=== PATIENT | female | born 1955 ===

== ENCOUNTER 2017-11-14 11:07 | Outpatient (CLI) | payer OTHER | END 2017-11-14 13:00 | disposition home or self-care (01) | LOC: MAMO-SONO 11:07 → SONOGRAMA 11:07 → MAMO-SONO 13:00 | DX: Z12.31 Encounter for screening mammogram for malignant neoplasm of breast (principal); N60.11 Diffuse cystic mastopathy of right breast ==

== ENCOUNTER 2017-11-18 12:43 | Outpatient (CLI) | payer OTHER | END 2017-11-18 12:58 | disposition home or self-care (01) | LOC: MAMO-SONO 12:43 | DX: Z12.31 Encounter for screening mammogram for malignant neoplasm of breast (principal); N60.11 Diffuse cystic mastopathy of right breast ==

== ENCOUNTER 2018-11-23 14:10 | Outpatient (CLI) | payer OTHER | END 2018-11-23 14:18 | disposition home or self-care (01) | LOC: MAMO-SONO 14:10 | DX: N60.11 Diffuse cystic mastopathy of right breast (principal); N60.12 Diffuse cystic mastopathy of left breast ==